=== PATIENT | male | born 1960 | race Hispanic/Latino ===

== ENCOUNTER 2017-06-14 06:27 | Emergency (ER) | payer MEDICAID ==
[2017-06-14 06:36] VITALS: RESP 18; TEMP 97.8; O2SAT 96; BMI 25.1
--- NOTE | 2017-06-14 07:12 | ED PDOC ---
Arrival/HPI - General Chief Complaint: Upper Extremity Problem/Injury Time Seen by Provider: 06/14/17 06:31 Historian: Patient - History of Present Illness Narrative History of Present Illness (Text): 06/14/17 07:05 A 57 year old male presents to the emergency department complaining of right elbow pain after mechanical fall last night. Patient reports he tripped on the sidewalk landing on his right elbow. Patient denies any loss of consciousness, head trauma, headache, neck pain, nausea, vomiting, back pain, chest pain, shortness of breath or any other complaints. PMD: Dr. Mendes Time/Duration: Other (Last night) Symptom Course: Unchanged Context: Walking Past Medical History - Provider Review Nursing Documentation Reviewed: Yes - Infectious Disease Hx of Infectious Diseases: None - Tetanus Immunization Tetanus Immunization: Unknown - Cardiac Hx Hypertension: Yes - Pulmonary Hx Respiratory Disorders: No - Neurological Hx Paralysis: No - HEENT Hx HEENT Disorder: No - Renal Hx Renal Disorder: No - Endocrine/Metabolic Hx Endocrine Disorders: No - Hematological/Oncological Hx Blood Transfusions: No - Integumentary Hx Dermatological Disorder: No Other/Comment: history of lipoma right forehead - Musculoskeletal/Rheumatological Hx Musculoskeletal Disorders: Yes Hx Herniated Disk: Yes - Gastrointestinal Hx Gastrointestinal Disorders: Yes Hx Fatty Liver Disease: Yes Hx Gastroesophageal Reflux: Yes - Genitourinary/Gynecological Hx Genitourinary Disorders: No - Psychiatric Hx Emotional Abuse: No Hx Physical Abuse: No Hx Substance Use: No - Surgical History Other/Comment: tumor right forehead - Anesthesia Hx Anesthesia Reactions: No Hx Malignant Hyperthermia: No - Suicidal Assessment Feels Threatened In Home Enviroment: No Family/Social History - Physician Review Nursing Documentation Reviewed: Yes Family/Social History: No Known Family HX Smoking Status: Heavy Smoker > 10 Cigarettes Daily Hx Alcohol Use: Yes Frequency of alcohol use: Socially Hx Substance Use: No Hx Substance Use Treatment: No Allergies/Home Meds Allergies/Adverse Reactions: Allergies No Known Allergies Allergy (Verified 06/20/16 17:24) Physical Exam - Physical Exam Narrative Physical Exam (Text): - Review of Systems Constitutional: Normal. absent: Fatigue, Weight Change, Fevers Eyes: Normal ENT: Normal Respiratory: Normal absent: SOB, Cough, Sputum Cardiovascular: Normal absent: Chest pain, Palpitations, Syncope Gastrointestinal: Normal absent: Abdominal pain, Diarrhea, Nausea, Vomiting Genitourinary: Normal. absent: Dysuria, Frequency, Hematuria Musculoskeletal: (+) Right elbow pain. absent: Arthralgias, Back Pain, Neck Pain Skin: Normal Neurological: Normal absent: Focal Weakness Endocrine: Normal Hemo/Lymphatic: Normal Psychiatric: Normal - Physical exam Patient appears age appropriate, speaking full sentences without difficulty - Systems Exam Head: Present: Atraumatic, Normocephalic Pupils: Present: PERRL Extraocular Muscles: Present: EOMI Conjunctiva: Present: Normal Mouth: Present: Moist Mucous Membranes Neck: Present: Normal Range of Motion. No: MIDLINE TENDERNESS, Paraspinal Tenderness Respiratory/Chest: Present: Clear to Auscultation, Good Air Exchange. No: Respiratory Distress, Accessory Muscle Use, Tachypnic Cardiovascular: Present: Regular Rate and Rhythm, Normal S1, S2, Peripheral Pulses Present. No: Murmurs Abdomen: Present: Normal Bowel Sounds, No: Tenderness, Peritoneal Signs, Rebound, Guarding, Distention Back: Present: Normal Inspection. No: Midline Tenderness, Paraspinal Tenderness Upper Extremity: Present: Full active and passive ROM of right wrist, Limited ROM of right elbow secondary to pain, Shoulder, clavicle, and humerus unremarkable. No: Tenderness in wrist, Snuff box tenderness, Pain with axial thumb loading, Obvious swelling, Cyanosis, Edema Lower Extremity: Present: Normal Inspection. No: Edema Neurological: Present: GCS=15, Speech Normal, cranial nerves II through XII fully intact with no cerebellar abnormality, neuro-sensory fully intact. No focal neurological deficits. Skin: Present: Warm, Dry, Normal Color. No: Rashes Lymphatic: Present: OX3, NI, NC Psychiatric: Present: Alert, Oriented x 3, Normal Insight, Normal Concentration Vital Signs Reviewed: Yes Vital Signs Temp Pulse Resp BP Pulse Ox 06/14/17 09:00 80 18 138/89 06/14/17 06:31 97.8 F 96 H 18 174/62 H 96 Temperature: Afebrile Blood Pressure: Hypertensive Pulse: Tachycardic Respiratory Rate: Normal Appearance: Positive for: Well-Appearing, Non-Toxic, Comfortable Pain Distress: None Mental Status: Positive for: Alert and Oriented X 3 Medical Decision Making ED Course and Treatment: 06/14/17 07:05 Impression: A 57 year old male with right elbow pain after mechanical fall. On exam, limited ROM of right elbow secondary to pain, wrist, shoulder, clavicle, and humerus unremarkable. Differential Diagnosis included but are not limited to: Sprain vs. Strain vs. Fracture Plan: -- Right elbow xray -- Right forearm xray -- Toradol -- Reassess and disposition Progress Notes: 06/14/17 07:58: Right elbow X-ray read and interpreted by me, which shows distal humeral fracture. 06/14/17 08:20: Dr. Yanes paged, awaiting call back. Posterior long arm splint applied. Distal neurovascular fully intact. Patient states he will follow up his orthopedic surgeon, which he sees in [place]. Patient states that he does not want a sling and removed it while in the emergency department. Patient was warned of the benefits of using a sling and the risks of improper immobilization. 06/14/17 08:32: Discussed case with Dr. Yanes, agrees with follow up outpatient. Requests CT prior to discharge. Report Date : 06/14/2017 09:17:23 Procedure: Right upper extremity CT Dictator : Chano Chávez MD IMPRESSION: Severe degenerative changes with large joint effusion. Linear lucency along the medial margin of the coronoid process favored to represent a degenerative change though nondisplaced fractures not definitively excluded. Pt states he understands to return to the ER right away for new or worsening symptoms or for inability to f/u with PMD or specialist as instructed. Patient states that he fully agrees with and understands discharge instructions. States that he agrees with the plan and disposition. Verbalized and repeated discharge instructions and plan. I have given the patient opportunity to ask any additional questions. - RAD Interpretation Radiology Orders: 06/14/17 07:12 ELBOW RIGHT 3 VIEWS ROUTINE [RAD] Stat FOREARM RT FALL PROTOCOL [RAD] Stat 06/14/17 08:32 EXT UPPER W/O CONTRAST RIGHT [CT] Stat - Medication Orders Current Medication Orders: Discontinued Medications Ketorolac Tromethamine (Toradol) 30 mg IM STAT STA Stop: 06/14/17 07:13 Last Admin: 06/14/17 07:54 Dose: 30 mg Re-Assess: JARVIS Pain Assessment Document 06/14/17 08:54 NH (Rec: 06/14/17 10:36 [place] [facility] [id number]) Pain Reassessment Is this a pain reassessment? Yes Sleep Is patient sleeping during reassessment? No Presence of Pain Presence of Pain Yes Pain Scale Used Pain Scale Used Numeric Location Left, Right or Bilateral Right Pain Location Body Site Elbow Description Description Throbbing Pain Behavior Guarding Aggravating Factors ADL's Changing Position - Scribe Statement The provider has reviewed the documentation as recorded by the Scribe Lexus Scott training under Fernanda Washburn Provider Scribe Attestation: All medical record entries made by the Scribe were at my direction and personally dictated by me. I have reviewed the chart and agree that the record accurately reflects my personal performance of the history, physical exam, medical decision making, and the department course for this patient. I have also personally directed, reviewed, and agree with the discharge instructions and disposition. Disposition/Present on Arrival - Present on Arrival Any Indicators Present on Arrival: No History of DVT/PE: No History of Uncontrolled Diabetes: No Urinary Catheter: No History of Decub. Ulcer: No History Surgical Site Infection Following: None - Disposition Have Diagnosis and Disposition been Completed?: Yes Diagnosis: Elbow fracture Disposition: HOME/ ROUTINE Disposition Time: 08:17 Patient Plan: Discharge Condition: GOOD Discharge Instructions (ExitCare): Elbow Fracture in Adults (ED) Additional Instructions: PLEASE RETURN TO THE EMERGENCY DEPARTMENT FOR NEW OR WORSENING SYMPTOMS. RETURN RIGHT AWAY IF YOU CANNOT FOLLOW UP WITH YOUR PRIMARY CARE DOCTOR, CLINIC, OR SPECIALIST IN 1-2 DAYS. Prescriptions: oxyCODONE/Acetaminophen [Percocet 5/325 mg Tab] 1 ea PO Q8 #12 tab Referrals: Yecenia Mendes DO [Primary Care Provider] - Follow up with primary Evaristo Nix DO [Staff Provider] - Follow up with primary Taylor Corona MD [Staff Provider] - Follow up with primary Forms: [facility] ([place]), WORK NOTE
--- NOTE | 2017-06-14 09:19 | CT ---
PROCEDURE: HISTORY: fx COMPARISON: 06/14/2017 radiographs TECHNIQUE: Noncontrast FINDINGS: Evaluation demonstrates severe degenerative changes of the elbow joint with multiple fragments, as well as marginal spur formation, with subchondral sclerosis. There is a linear lucency noted along the medial margin of the coronoid process which may be chronic though a fracture is not definitively excluded. There is a large joint effusion. The remaining soft tissues are grossly unremarkable. IMPRESSION: Severe degenerative changes with large joint effusion. Linear lucency along the medial margin of the coronoid process favored to represent a degenerative change though nondisplaced fractures not definitively excluded.
[2017-06-14 10:36] VITALS: BP 138/89; PULSE 80
--- NOTE | 2017-06-14 13:13 | RAD ---
PROCEDURE: Radiographs of the Right Forearm HISTORY: fall COMPARISON: Comparison made with concurrent radiographs of the right elbow TECHNIQUE: Frontal and lateral views obtained. FINDINGS: BONES: The current study reveals multiple small bony densities within the soft tissues adjacent to to the lateral and probably supracondylar region no. Findings may represent heterotopic bone secondary to degenerative osteoarthritis however the possibility of a small nondisplaced fracture cannot be excluded. Consider followup CT scan of the right elbow JOINT SPACES: Degenerative osteoarthritis. OTHER FINDINGS: None. IMPRESSION: DJD. Possibility of a nondisplaced fracture cannot be completely excluded. Followup CT scan may be prudent.
--- NOTE | 2017-06-14 13:14 | RAD ---
PROCEDURE: Radiographs of the right elbow. HISTORY: fall COMPARISON: Comparison made with concurrent radiographs of the right forearm. FINDINGS: BONES: The current study reveals multiple tiny densities within soft tissues adjacent to the lateral and medial epicondyles as well as in the supracondylar region. Findings may represent early ectopic bone secondary DJD however the possibility of a nondisplaced fracture not excluded consider followup CT scan of the elbow. JOINTS: Degenerative osteoarthritis of with heterotopic bone changes. SOFT TISSUES: Normal. JOINT EFFUSION: No significant joint effusion is identified OTHER FINDINGS: None. IMPRESSION: DJD with small heterotopic bony densities likely degenerative in origin as well. Possible nondisplaced fracture not excluded. Consider followup CT scan of the elbow.
== END 2017-06-14 09:00 | disposition home or self-care (01) ==
LOC: ED 06:27
DX: S42.401A Unspecified fracture of lower end of right humerus, initial encounter for closed fracture (principal); W01.0XXA Fall on same level from slipping, tripping and stumbling without subsequent striking against object, initial encounter; Y93.9 Activity, unspecified; Y92.480 Sidewalk as the place of occurrence of the external cause
CPT/HCPCS: 73080; 73090; 73200; 96372; 99283; J1885

== ENCOUNTER 2017-08-19 22:35 | Inpatient (IN) | payer MEDICAID ==
[2017-08-19 22:35] VITALS: BMI 25.1
[2017-08-19] MEDS ORDERED: Pantoprazole 40 MG in Sodium Chloride 0.9% 100 ML IV STA (22:49)
[2017-08-19] MEDS ORDERED: Sodium Chloride 0.9% 1,000 ML IV STA (22:49)
--- NOTE | 2017-08-19 23:15 | ED PDOC ---
Arrival/HPI - General Chief Complaint: Chest Pain Time Seen by Provider: 08/19/17 22:37 - History of Present Illness Narrative History of Present Illness (Text): 08/19/17 23:05 A 57 year old male, whose past medical history includes hypertension, presents to the emergency department complaining of chest pain for 1 week. Patient notes also experiencing abdominal pain, but denies of any chills, nausea, vomiting, or any other complaints. Also, patient states he drinks on a daily basis. PMD: Dr. Yecenia Mendes Time/Duration: 1 week Symptom Onset: Sudden Symptom Course: Unchanged Past Medical History - Provider Review Nursing Documentation Reviewed: Yes - Infectious Disease Hx of Infectious Diseases: None - Tetanus Immunization Tetanus Immunization: Unknown - Cardiac Hx Hypertension: Yes - Pulmonary Hx Respiratory Disorders: No - Neurological Hx Paralysis: No - HEENT Hx HEENT Disorder: No - Renal Hx Renal Disorder: No - Endocrine/Metabolic Hx Endocrine Disorders: No - Hematological/Oncological Hx Blood Transfusions: No - Integumentary Hx Dermatological Disorder: No Other/Comment: history of lipoma right forehead - Musculoskeletal/Rheumatological Hx Musculoskeletal Disorders: Yes Hx Herniated Disk: Yes - Gastrointestinal Hx Gastrointestinal Disorders: Yes Hx Fatty Liver Disease: Yes Hx Gastroesophageal Reflux: Yes - Genitourinary/Gynecological Hx Genitourinary Disorders: No - Psychiatric Hx Emotional Abuse: No Hx Physical Abuse: No Hx Substance Use: No - Surgical History Other/Comment: tumor right forehead - Anesthesia Hx Anesthesia Reactions: No Hx Malignant Hyperthermia: No - Suicidal Assessment Feels Threatened In Home Enviroment: No Family/Social History - Physician Review Nursing Documentation Reviewed: Yes Family/Social History: No Known Family HX Smoking Status: Heavy Smoker > 10 Cigarettes Daily Hx Alcohol Use: Yes Hx Substance Use: No Hx Substance Use Treatment: No Allergies/Home Meds Allergies/Adverse Reactions: Allergies No Known Allergies Allergy (Verified 06/20/16 17:24) Home Medications: Home Meds Medication Instructions Recorded Confirmed Naproxen Sodium [Aleve] 220 mg PO DAILY 08/20/17 08/20/17 Review of Systems - Physician Review All systems were reviewed & negative as marked: Yes - Review of Systems Constitutional: absent: Night Sweats Cardiovascular: Chest Pain Gastrointestinal: Abdominal Pain. absent: Nausea, Vomiting Physical Exam Vital Signs Temp Pulse Resp BP Pulse Ox 08/20/17 01:55 98.4 F 63 20 138/90 97 08/20/17 00:36 83 16 132/79 96 08/19/17 22:36 99.3 F 70 19 139/84 95 - Systems Exam Head: Present: Atraumatic, Normocephalic Pupils: Present: PERRL Extroacular Muscles: Present: EOMI Conjunctiva: Present: Normal Mouth: Present: Moist Mucous Membranes Neck: Present: Normal Range of Motion Respiratory/Chest: Present: Clear to Auscultation, Good Air Exchange. No: Respiratory Distress, Accessory Muscle Use Cardiovascular: Present: Regular Rate and Rhythm, Normal S1, S2. No: Murmurs Abdomen: Present: Tenderness (slight tenderness to LUQ abdomen) Back: Present: Normal Inspection Upper Extremity: Present: Normal Inspection. No: Cyanosis, Edema Lower Extremity: Present: Normal Inspection. No: Edema Neurological: Present: GCS=15, CN II-XII Intact, Speech Normal Skin: Present: Warm, Dry, Normal Color. No: Rashes Psychiatric: Present: Alert, Oriented x 3, Normal Insight, Normal Concentration Medical Decision Making ED Course and Treatment: 08/19/17 23:13 Impression: 57 year old male with chest pain and abdominal pain. Physical exam shows slight tenderness to LUQ abdomen, possible pancreatitis due to daily alcohol drinking. Plan: -- EKG -- labs -- Urinalysis -- Protonix -- Zofran -- IV Fluids -- Reassess and disposition Prior Visits: Notes and results from previous visits were reviewed. Patient was last in the emergency department on 06/14/2017 for right elbow pain. Patient was discharged home. Progress Notes: case d/w dr duron and medical charge entry specialist 08/22/17 08:16 - Lab Interpretations Lab Results: 08/19/17 22:50 08/19/17 22:50 Lab Results 08/19/17 22:50: Alcohol, Quantitative < 10 08/19/17 22:50: Sodium 134, Potassium 3.3 L, Chloride 99, Carbon Dioxide 24, Anion Gap 14, BUN 11, Creatinine 0.7, Est GFR ( Amer) > 60, Est GFR (Non- Af Amer) > 60, Random Glucose 111 H, Calcium 9.0, Total Bilirubin 1.6 H, AST 135 H, ALT 110 H, Alkaline Phosphatase 150 H, Lactate Dehydrogenase 639, Total Creatine Kinase 288 H, CK-MB (CK-2) 4.1 H, CK-MB (CK-2) % Cancelled, Troponin I < 0.01, Total Protein 6.7, Albumin 3.7, Globulin 3.0, Albumin/Globulin Ratio 1.2 , Amylase 58, Lipase 43 08/19/17 22:50: PT 10.7, INR 0.99, APTT 32.2 H 08/19/17 22:50: WBC 7.4, RBC 3.74, Hgb 13.1 L, Hct 36.3 L, MCV 97.1, MCH 35.0, MCHC 36.1, RDW 11.9, Plt Count 180, MPV 9.5, Gran % 73.6 H, Lymph % (Auto) 12.5 L, [place] % (Auto) 13.7 H, Eos % (Auto) 0.1 L, Baso % (Auto) 0.1, Gran # 5.46, Lymph # 0.9 L, [place] # 1.0 H, Eos # 0.0, Baso # 0.01 I have reviewed the lab results: Yes - Medication Orders Current Medication Orders: Aspirin (Aspirin Chewable) 324 mg PO DAILY [facility] Last Admin: 08/21/17 09:07 Dose: 324 mg Chlordiazepoxide (Librium) 10 mg PO BID MIGUEL PRN Reason: Protocol Last Admin: 08/21/17 17:43 Dose: 10 mg Behavioural Document 08/21/17 17:43 (Rec: 08/21/17 17:43 [id number]) Maintenance Maintenance Dose Yes Nonmedicinal Nonmedicinal Interventions Redirect Therapeutic Communication Behavior Behavior for Medication: Anxiety Folic Acid (Folic Acid) 1 mg PO DAILY [facility] Last Admin: 08/21/17 09:07 Dose: 1 mg Levofloxacin/Dextrose (Levaquin 500mg) 500 mg in 100 mls @ 100 mls/hr IVPB DAILY [facility] Last Admin: 08/21/17 09:12 Dose: 100 mls/hr eMAR Start Stop Document 08/21/17 09:12 KMS (Rec: 08/21/17 09:13 KMS [id number]) Intravenous Solution Start Date 08/21/17 Start Time 09:13 End Date 08/21/17 End time 10:13 Total Infusion Time 60 Lorazepam (Ativan) 1 mg IVP Q6H PRN; Protocol PRN Reason: Agitation Lorazepam (Ativan) 2 mg PO Q6H MIGUEL PRN Reason: Protocol Last Admin: 08/22/17 06:27 Dose: 2 mg Behavioural Document 08/22/17 06:27 PCO (Rec: 08/22/17 06:27 PCO [id number]) Maintenance Maintenance Dose Yes Nonmedicinal Nonmedicinal Interventions Redirect Behavior Behavior for Medication: Anxiety Multivitamins/Minerals (Therapeutic-M Tab) 1 tab PO 0800 MIGUEL Last Admin: 08/22/17 08:12 Dose: 1 tab Pantoprazole Sodium (Protonix Ec Tab) 40 mg PO 0600 MIGUEL Last Admin: 08/22/17 06:27 Dose: 40 mg Thiamine HCl (Vitamin B1 Tab) 100 mg PO DAILY [facility] Last Admin: 08/21/17 09:06 Dose: 100 mg Discontinued Medications Aspirin (Ecotrin) 81 mg PO STAT STA Stop: 08/20/17 01:38 Last Admin: 08/20/17 02:37 Dose: 81 mg Chlordiazepoxide (Librium) 25 mg PO STAT STA PRN Reason: Protocol Stop: 08/19/17 23:17 Last Admin: 08/19/17 23:54 Dose: 25 mg Chlordiazepoxide (Librium) 25 mg PO BID MIGUEL PRN Reason: Protocol Last Admin: 08/20/17 17:09 Dose: 25 mg Re-Assess: Reassess Psych Meds Document 08/20/17 18:09 DEL (Rec: 08/20/17 19:16 DEL [id number]) Reassess Psych Med Effective Sodium Chloride (Sodium Chloride 0.9%) 1,000 mls @ 100 mls/hr IV .Q10H STA Stop: 08/20/17 08:48 Last Admin: 08/19/17 23:10 Dose: 100 mls/hr eMAR Start Stop Document 08/19/17 23:10 JOL (Rec: 08/19/17 23:11 JOL [id number]) Intravenous Solution Start Date 08/19/17 Start Time 23:11 Multivitamins/Vitamin C 10 ml/Thiamine HCl 100 mg/ Folic Acid 1 mg/ Sodium Chloride 1,011.2 mls @ 100 mls/hr IV .Q10H7M ONE Stop: 08/20/17 11:54 Last Admin: 08/20/17 03:09 Dose: 100 mls/hr eMAR Start Stop Document 08/20/17 03:09 CO (Rec: 08/20/17 03:09 CO [id number]) Intravenous Solution Start Date 08/20/17 Start Time 03:09 Potassium Chloride (Potassium Chloride 20 Meq/100 Ml) 20 meq in 100 mls @ 50 mls/hr IVPB Q2H MIGUEL Stop: 08/20/17 08:44 Last Admin: 08/20/17 12:22 Dose: Magnesium Sulfate 2 gm/ Sodium (Chloride) 104 mls @ 102 mls/hr IVPB ONCE ONE Stop: 08/20/17 08:44 Last Admin: 08/20/17 09:16 Dose: 102 mls/hr eMAR Start Stop Document 08/20/17 09:16 DEL (Rec: 08/20/17 09:16 DEL [id number]) Intravenous Solution Start Date 08/20/17 Start Time 09:16 End Date 08/20/17 End time 10:15 Total Infusion Time 59 Potassium Phosphate 15 mmole/ (Sodium Chloride) 255 mls @ 42.5 mls/hr IVPB ONCE ONE Stop: 08/20/17 13:51 Last Admin: 08/20/17 11:05 Dose: 42.5 mls/hr eMAR Start Stop Document 08/20/17 11:05 DEL (Rec: 08/20/17 11:05 DEL [id number]) Intravenous Solution Start Date 08/20/17 Start Time 11:05 End Date 08/20/17 End time 17:00 Total Infusion Time 355 Ibuprofen (Motrin Tab) 600 mg PO ONCE ONE Stop: 08/21/17 12:36 Last Admin: 08/21/17 13:12 Dose: 600 mg [facility] Pain/Vitals Document 08/21/17 13:12 KMS (Rec: 08/21/17 13:12 KMS [id number]) Pain Reassessment Is This A Pain ReAssessment? 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 Yes Lorazepam (Ativan) 2 mg IVP Q6H [facility] PRN Reason: Protocol Last Admin: 08/21/17 09:06 Dose: 2 mg IVP Administration Document 08/21/17 09:06 KMS (Rec: 08/21/17 09:06 KMS [id number]) Charges for Administration # of IVP Administrations 1 Behavioural Document 08/21/17 09:06 KMS (Rec: 08/21/17 09:06 KMS [id number] [id number]) Maintenance Maintenance Dose Yes Nonmedicinal Nonmedicinal Interventions Redirect Behavior Behavior for Medication: Anxiety Re-Assess: Reassess Psych Meds Document 08/21/17 09:36 KMS (Rec: 08/21/17 11:19 KMS [id number]) Reassess Psych Med Effective Naproxen (Anaprox) 275 mg PO DAILY [facility] Last Admin: 08/20/17 09:15 Dose: 275 mg [facility] Pain Assessment Document 08/20/17 09:15 DEL (Rec: 08/20/17 09:15 DEL [id number]) Pain Reassessment Is this a pain reassessment? No Sleep Is patient sleeping during reassessment? No Presence of Pain Presence of Pain Yes Location Pain Location Body Site Abdomen Re-Assess: [facility] Pain Assessment Document 08/20/17 10:15 DEL (Rec: 08/20/17 10:29 DEL [id number] [id number]) Pain Reassessment Is this a pain reassessment? Yes Sleep Is patient sleeping during reassessment? No Presence of Pain Presence of Pain No Ondansetron HCl (Zofran Inj) 4 mg IVP STAT STA Stop: 08/19/17 22:50 Last Admin: 08/19/17 23:11 Dose: 4 mg IVP Administration Document 08/19/17 23:11 JOL (Rec: 08/19/17 23:11 JOL [id number]) Charges for Administration # of IVP Administrations 1 Pantoprazole Sodium (Protonix Inj) 40 mg IVP STAT STA Stop: 08/19/17 22:54 Last Admin: 08/19/17 23:11 Dose: 40 mg IVP Administration Document 08/19/17 23:11 JOL (Rec: 08/19/17 23:12 JOL [id number]) Charges for Administration # of IVP Administrations 1 Potassium Chloride (K-Dur 20 Meq Er Tab) 40 meq PO STAT STA Stop: 08/20/17 07:45 Last Admin: 08/20/17 09:13 Dose: 40 meq - Scribe Statement The provider has reviewed the documentation as recorded by the Nidhi Sanches Provider Scribe Attestation: All medical record entries made by the Preetiibminerva were at my direction and personally dictated by me. I have reviewed the chart and agree that the record accurately reflects my personal performance of the history, physical exam, medical decision making, and the department course for this patient. I have also personally directed, reviewed, and agree with the discharge instructions and disposition. Disposition/Present on Arrival - Present on Arrival Any Indicators Present on Arrival: No History of DVT/PE: No History of Uncontrolled Diabetes: No Urinary Catheter: No History of Decub. Ulcer: No History Surgical Site Infection Following: None - Disposition Have Diagnosis and Disposition been Completed?: Yes Diagnosis: Alcohol withdrawal Disposition: HOSPITALIZED Disposition Time: 00:25 Condition: GOOD
[2017-08-19 23:29] LABS: ALB/GLOB RATIO 1.2 (1.1-1.8); ALKALINE PHOSPHATASE 150 U/L (38-126); ALT/SGPT 110 U/L (7-56); AMYLASE 58 U/L (35-125); AST/SGOT 135 U/L (17-59); BILIRUBIN,TOTAL 1.6 mg/dL (0.2-1.3); BLOOD UREA NITROGEN 11 mg/dL (7-21); CARBON DIOXIDE 24 mmol/L (21-33); CHLORIDE 99 mmol/L (98-107); GFR AFRICAN-AMERICAN > 60; GLUCOSE,RANDOM 111 mg/dL (70-110); LIPASE 43 U/L (23-300); POTASSIUM 3.3 mmol/L (3.6-5.0); SODIUM 134 mmol/L (132-148); TOTAL PROTEIN 6.7 g/dL (5.8-8.3)
[2017-08-19 23:35] LABS: INR 0.99 (0.93-1.08); PARTIAL THROMBOPLASTIN TIME 32.2 Seconds (23.7-30.8)
[2017-08-19 23:36] LABS: BASO # 0.01 K/mm3 (0.0-2.0); BASO % 0.1 % (0.0-3.0); EOS % 0.1 % (1.5-5.0); GRAN # 5.46 (1.4-6.5); GRAN % 73.6 % (50.0-68.0); HEMATOCRIT 36.3 % (42.0-52.0); LYMPH # 0.9 (1.2-3.4); LYMPH % 12.5 % (22.0-35.0); MEAN CELL VOLUME 97.1 fl (80.0-105.0); MEAN CORPUSCULAR HGB CONC 36.1 g/dl (31.0-37.0); MEAN PLATELET VOLUME 9.5 fl (7.0-11.0); MONO % 13.7 % (1.0-6.0); RED CELL DISTRIBUTION WIDTH 11.9 % (11.5-14.5); WHITE BLOOD COUNT 7.4 10^3/ul (4.5-11.0)
[2017-08-19 23:42] LABS: TROPONIN I < 0.01 ng/mL
[2017-08-20] MEDS ORDERED: Multivitamin (MVI) 10 ML, Thiamine 100 MG, Folic Acid 1 MG in Sodium Chloride 0.9% 1,00... IV ONE (01:48)
[2017-08-20 02:00] LABS: URINE BILIRUBIN SMALL (NEGATIVE); URINE BLOOD NEGATIVE (NEGATIVE); URINE GLUCOSE (UA) NEGATIVE (NEGATIVE); URINE KETONE 15 mg/dL (NEGATIVE); URINE LEUKOCYTE ESTERASE NEGATIVE Leu/uL (NEGATIVE); URINE PROTEIN TRACE mg/dL (<30 mg/dL)
[2017-08-20 02:05] LABS: URINE APPEARANCE SL CLOUDY (CLEAR); URINE COLOR YELLOW (YELLOW)
[2017-08-20 02:35] LABS: URINE EPITHELIAL CELLS 0 - 2 /hpf (0-5); URINE RBC 0 - 2 /hpf (0-2); URINE WBC 0 - 2 /hpf (0-6)
--- NOTE | 2017-08-20 04:21 | CP.PCM.HP ---
History of Present Illness - History of Present Illness History of Present Illness: H/P For IM - TKS DO, PGY-1 CC: CP HPI: 57 M with PMHx pertinent for HTN presents with a two week duration of sharp, non -radiating chest pain of 5/10 severity with associated symptoms of sob that did not get better with any intervention. 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 He also states that he has had a cough for the same period of time, and that he has coughed up yellow sputum. He states that he came to the ER today because the CP made him feel "like (he) was dying." Patient admits to drinking alcohol everyday. Pt denies f/ch/n/v/d/dysuria/frequency/urgency/hematuria/hematochezia/ hematemesis PSHx: Pt denies PMHx: HTN All: NKDA SocHx: +tobacco, +daily etoh, +illicits - heroin, marijuana FamHx: Pt denies Meds: Naproxen ROS: Constitutional: pt denies fever, chills, generalized weakness ENT: pt denies dysphagia, otalgia, hearing deficit, rhinorrhea Eyes: pt denies sudden loss of vision, diplopia, blurred vision MSK: pt denies muscle stiffness, joint pain, extremity cramping Cardio: +see hpi; Pulm: +see hpi; GI: +minor abdominal pain; pt denies loss of appetite, abdominal pain, constipation, melena, n/v/d : pt denies burning on urination, urinary frequency, hematuria, urinary urgency Neuro: pt denies paresis, paresthesia, dizziness, broussard, numbness, tingling Derm: pt denies skin changes, lesions, nail changes Endo: pt denies intolerance to heat/cold, diaphoresis, night sweats, polydipsia Psych: pt denies anxiety, depression, mood changes Present on Admission - Present on Admission Any Indicators Present on Admission: No Past Patient History - Infectious Disease Hx of Infectious Diseases: None - Tetanus Immunizations Tetanus Immunization: Unknown - Past Social History Smoking Status: Heavy Smoker > 10 Cigarettes Daily - CARDIAC Hx Hypertension: Yes - PULMONARY Hx Respiratory Disorders: Yes Hx Bronchitis: Yes - NEUROLOGICAL Hx Neurological Disorder: No Hx Dizziness: Yes Hx Migraine: Yes - HEENT Hx HEENT Problems: No Hx Blind: Yes - RENAL Hx Chronic Kidney Disease: Yes Hx Renal Failure: Yes (2015) - ENDOCRINE/METABOLIC Hx Endocrine Disorders: No - HEMATOLOGICAL/ONCOLOGICAL Hx Blood Disorders: No Hx Hepatitis B: Yes (2016) - INTEGUMENTARY Hx Dermatological Problems: No Other/Comment: history of lipoma right forehead - MUSCULOSKELETAL/RHEUMATOLOGICAL Hx Musculoskeletal Disorders: Yes Hx Back Pain: Yes Hx Falls: Yes Hx Fractures: Yes (fingers, arms, elbow) Hx Herniated Disk: Yes - GASTROINTESTINAL Hx Gastrointestinal Disorders: Yes Hx Gastroesophageal Reflux: Yes Hx Liver Failure: Yes - GENITOURINARY/GYNECOLOGICAL Hx Genitourinary Disorders: No - PSYCHIATRIC Hx Psychophysiologic Disorder: Yes Hx Anxiety: Yes Hx Emotional Abuse: No Hx Physical Abuse: No Hx Substance Use: No - SURGICAL HISTORY Hx Surgeries: Yes Other/Comment: tumor right forehead, hernia hydrocele - ANESTHESIA Hx Anesthesia Reactions: No Hx Malignant Hyperthermia: No Meds Allergies/Adverse Reactions: Allergies Allergy/AdvReac Type Severity Reaction Status Date / Time No Known Allergies Allergy Verified 06/20/16 17:24 Physical Exam - Additional Findings Additional findings: Phys Exam: VS as below Constitutional: a&o x 4, nad Head and Neck: neck supple, no jvd, trachea midline, carotid midline, no cervical/head mass Eyes: steve, nonicteric sclera, eom intact ENT: auditory acuity grossly intact, throat not congested, no nasal deformity Cardio: rrr, no m/r/g, no carotid bruit, nml s1, s2 Pulm: no accessory muscle use, equal nml breath sounds bilaterally, ctab Abd: +LUQ tenderness; s/nd, nbs x 4 q, no palpable masses Derm: no rashes, no ulcers, no lesions Extr: no edema, no cyanosis, no calf tenderness, no lesions, no varicosities Neuro: cn II-XII grossly intact, ue and le 5/5 muscle strength bilaterally , no los ue, le bilaterally and core Results - Vital Signs Recent Vital Signs: Last Vital Signs Temp 99.3 F 08/19/17 22:36 Pulse 80 08/20/17 02:00 Resp 20 08/20/17 02:00 BP 132/79 08/20/17 00:36 Pulse Ox 96 08/20/17 00:36 - Labs Result Diagrams: 08/19/17 22:50 08/19/17 22:50 Labs: Laboratory Results - last 24 hr 08/20/17 08/20/17 01:45 01:45 Urine Color Yellow Urine Appearance Sl cloudy Urine pH 7.0 Ur Specific [place] 1.010 Urine Protein Trace H Urine Glucose (UA) Negative Urine Ketones 15 H Urine Blood Negative Urine Nitrate Negative Urine Bilirubin Small H Urine Urobilinogen 2.0 H Ur Leukocyte Esterase Negative Urine RBC 0 - 2 Urine WBC 0 - 2 Ur Epithelial Cells 0 - 2 Urine Opiates Screen Positive H Urine Methadone Screen Negative Ur Barbiturates Screen Negative Ur Phencyclidine Scrn Negative Ur Amphetamines Screen Negative U Benzodiazepines Scrn Negative U Oth Cocaine Metabols Negative U Cannabinoids Screen Positive H Assessment & Plan - Assessment and Plan (Free Text) Assessment: A/P 57 M PMHx of HTN and substance abuse presenting with 2 weeks duration of chest pain. 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 Pradhan Hypokalemia - Replete K+ prn - Assess Mg level Hx/O HTN - No home meds, BP fine here Hx/O Substance Abuse - f/u Tox Screen - Advise on cessation
--- NOTE | 2017-08-20 05:27 | CP.PCM.CON ---
<Asuncion Johnston - Last Filed: 08/20/17 13:01> History of Present Illness - History of Present Illness History of Present Illness: Pgy4 Initial GI Consult Sergio Bray is a 57 M with a hx of HTN presented to the ER with Chest Pain. Onset of CP was two week ago. He is currently hallucinating. He describes it as sharp, non-radiating chest pain of 5/10 severity. Denies any alleviating/ aggravating symptoms. He states that he had RUQ pain, but minimal. He states that is consumes ETOH daily with an average of 10 beers daily. His last drink was 2-3 days ago as per pt. Pt states that he has daily formed brown BM. Pt states that he was hospitalized last year for jaundice and ETOH hepatatis. He state that he was sober for some time afterwards but started to consume alcohol 2 months ago. Denies nausea, vomiting diarrhea. Denies BRBPR, melena, or coffee- ground emesis. In the ER pt was found to have elevated LFts. Pt is currently on CIWA protocol and received 9mg Ativan Iv overnight + standing. PSHx: denies PMHx: HTN SocHx: +tobacco, +daily etoh, +illicits - heroin, marijuana FamHx: Denies hx of colon ca Meds: Naproxen ROS: 12 point ROS conducted, neg other than above Past Patient History - Infectious Disease Hx of Infectious Diseases: None - Tetanus Immunizations Tetanus Immunization: Unknown - Past Social History Smoking Status: Heavy Smoker > 10 Cigarettes Daily - CARDIAC Hx Hypertension: Yes - PULMONARY Hx Respiratory Disorders: Yes Hx Bronchitis: Yes - NEUROLOGICAL Hx Neurological Disorder: No Hx Dizziness: Yes Hx Migraine: Yes - HEENT Hx HEENT Problems: No Hx Blind: Yes - RENAL Hx Chronic Kidney Disease: Yes Hx Renal Failure: Yes (2016) - ENDOCRINE/METABOLIC Hx Endocrine Disorders: No - HEMATOLOGICAL/ONCOLOGICAL Hx Blood Disorders: No Hx Hepatitis B: Yes (2016) - INTEGUMENTARY Hx Dermatological Problems: No Other/Comment: history of lipoma right forehead - MUSCULOSKELETAL/RHEUMATOLOGICAL Hx Musculoskeletal Disorders: Yes Hx Back Pain: Yes Hx Falls: Yes Hx Fractures: Yes (fingers, arms, elbow) Hx Herniated Disk: Yes - GASTROINTESTINAL Hx Gastrointestinal Disorders: Yes Hx Gastroesophageal Reflux: Yes Hx Liver Failure: Yes - GENITOURINARY/GYNECOLOGICAL Hx Genitourinary Disorders: No - PSYCHIATRIC Hx Psychophysiologic Disorder: Yes Hx Anxiety: Yes Hx Emotional Abuse: No Hx Physical Abuse: No Hx Substance Use: No - SURGICAL HISTORY Hx Surgeries: Yes Other/Comment: tumor right forehead, hernia hydrocele - ANESTHESIA Hx Anesthesia Reactions: No Hx Malignant Hyperthermia: No Meds Allergies/Adverse Reactions: Allergies Allergy/AdvReac Type Severity Reaction Status Date / Time No Known Allergies Allergy Verified 06/20/16 17:24 - Medications Medications: Current Medications Aspirin (Aspirin Chewable) 324 mg PO DAILY [facility] Chlordiazepoxide (Librium) 25 mg PO BID MIGUEL PRN Reason: Protocol Sodium Chloride (Sodium Chloride 0.9%) 1,000 mls @ 100 mls/hr IV .Q10H STA Stop: 08/20/17 08:48 Last Admin: 08/19/17 23:10 Dose: 100 mls/hr Multivitamins/Vitamin C 10 ml/Thiamine HCl 100 mg/ Folic Acid 1 mg/ Sodium Chloride 1,011.2 mls @ 100 mls/hr IV .Q10H7M ONE Stop: 08/20/17 11:54 Last Admin: 08/20/17 03:09 Dose: 100 mls/hr Potassium Chloride (Potassium Chloride 20 Meq/100 Ml) 20 meq in 100 mls @ 50 mls/hr IVPB Q2H MIGUEL Stop: 08/20/17 08:44 Lorazepam (Ativan) 2 mg IVP Q2 PRN; Protocol PRN Reason: Agitation Lorazepam (Ativan) 2 mg IVP Q6H MIGUEL PRN Reason: Protocol Last Admin: 08/20/17 02:36 Dose: 2 mg Naproxen (Anaprox) 275 mg PO DAILY [facility] Pantoprazole Sodium (Protonix Ec Tab) 40 mg PO 0600 [facility] Physical Exam - Constitutional Appears: Well, No Acute Distress - Head Exam Head Exam: ATRAUMATIC, NORMOCEPHALIC - Eye Exam Eye Exam: Normal appearance - ENT Exam ENT Exam: Mucous Membranes Moist - Respiratory Exam Respiratory Exam: Clear to Auscultation Bilateral, NORMAL BREATHING PATTERN. absent: Prolonged Expiratory Phase, Rales, Rhonchi, Wheezes, Respiratory Distress - Cardiovascular Exam Cardiovascular Exam: REGULAR RHYTHM, +S1, +S2 - GI/Abdominal Exam GI & Abdominal Exam: Normal Bowel Sounds, Soft. absent: Firm, Guarding, Organomegaly, Rebound - Extremities Exam Extremities exam: Negative for: joint swelling, pedal edema - Neurological Exam Neurological exam: Alert, Oriented x3 - Psychiatric Exam Psychiatric exam: Normal Affect, Normal Mood - Skin Skin Exam: Dry, Intact, Normal Color, Warm Results - Vital Signs Recent Vital Signs: Last Vital Signs Temp 99.3 F 08/19/17 22:36 Pulse 80 08/20/17 02:00 Resp 20 08/20/17 02:00 BP 132/79 08/20/17 00:36 Pulse Ox 96 08/20/17 00:36 - Labs Result Diagrams: 08/20/17 06:00 08/20/17 06:00 Labs: Laboratory Results - last 24 hr 08/20/17 08/20/17 01:45 01:45 Urine Color Yellow Urine Appearance Sl cloudy Urine pH 7.0 Ur Specific [place] 1.010 Urine Protein Trace H Urine Glucose (UA) Negative Urine Ketones 15 H Urine Blood Negative Urine Nitrate Negative Urine Bilirubin Small H Urine Urobilinogen 2.0 H Ur Leukocyte Esterase Negative Urine RBC 0 - 2 Urine WBC 0 - 2 Ur Epithelial Cells 0 - 2 Urine Opiates Screen Positive H Urine Methadone Screen Negative Ur Barbiturates Screen Negative Ur Phencyclidine Scrn Negative Ur Amphetamines Screen Negative U Benzodiazepines Scrn Negative U Oth Cocaine Metabols Negative U Cannabinoids Screen Positive H Assessment & Plan - Assessment and Plan (Free Text) Assessment: Sergio Bray is a 57M w/ hx of HTN and ETOH abuse who presented with CP. Pt is currently on the floor and being tx for alcohol withdrawl. He was found to have have elevated LFTs, likely due to alcoholic hepatitis, r/o infectious etiology 1. Alcoholic Hepatitis, dF < 32 2. Alcohol withdraw 3. Fatty liver 4. Cholelithiasis 5. Dilated CBD, with no U/S evidence of stone 6. ETOH Abuse Plan: -DF < 32, no indication for steroids -continue CIWA -recommend increasing the standing dose of ativan -advance diet as tolerated -watch for refeeding syndrome -if pt requires escalating doses of ativan, may need an ICU Eval -educate on alcohol cessation -anticipate prolonged hospital course -Agree with hepatitis panel -Abd U/S reviewed -No acute GI intervention at this time -will sign off, please reconsult if needed D/W Dr. Ryan <Amaury Ryan - Last Filed: 08/20/17 13:09> Meds - Medications Medications: Current Medications Aspirin (Aspirin Chewable) 324 mg PO DAILY [facility] Last Admin: 08/20/17 09:14 Dose: 324 mg Chlordiazepoxide (Librium) 25 mg PO BID MIGUEL PRN Reason: Protocol Last Admin: 08/20/17 09:15 Dose: 25 mg Potassium Phosphate 15 mmole/ (Sodium Chloride) 255 mls @ 42.5 mls/hr IVPB ONCE ONE Stop: 08/20/17 13:51 Last Admin: 08/20/17 11:05 Dose: 42.5 mls/hr Lorazepam (Ativan) 2 mg IVP Q2 PRN; Protocol PRN Reason: Agitation Lorazepam (Ativan) 2 mg IVP Q6H MIGUEL PRN Reason: Protocol Last Admin: 08/20/17 09:16 Dose: 2 mg Naproxen (Anaprox) 275 mg PO DAILY [facility] Last Admin: 08/20/17 09:15 Dose: 275 mg Pantoprazole Sodium (Protonix Ec Tab) 40 mg PO 0600 [facility] Last Admin: 08/20/17 05:36 Dose: 40 mg Results - Vital Signs Recent Vital Signs: Last Vital Signs Temp 98.6 F 08/20/17 12:00 Pulse 66 08/20/17 12:00 Resp 18 08/20/17 12:00 BP 133/84 08/20/17 12:00 Pulse Ox 97 08/20/17 05:19 - Labs Result Diagrams: 08/20/17 06:00 08/20/17 06:00 Labs: Laboratory Results - last 24 hr 08/20/17 08/20/17 08/20/17 01:45 01:45 06:00 WBC 6.1 RBC 3.71 Hgb 12.7 L Hct 36.2 L MCV 97.6 MCH 34.2 MCHC 35.1 RDW 12.0 Plt Count 178 MPV 9.6 Sodium Potassium Chloride Carbon Dioxide Anion Gap BUN Creatinine Est GFR ( Amer) Est GFR (Non-Af Amer) Random Glucose Hemoglobin A1c Calcium Phosphorus Magnesium Total Bilirubin AST ALT Alkaline Phosphatase Troponin I Total Protein Albumin Globulin Albumin/Globulin Ratio Triglycerides Cholesterol LDL Cholesterol Direct HDL Cholesterol TSH 3rd Generation Urine Color Yellow Urine Appearance Sl cloudy Urine pH 7.0 Ur Specific [place] 1.010 Urine Protein Trace H Urine Glucose (UA) Negative Urine Ketones 15 H Urine Blood Negative Urine Nitrate Negative Urine Bilirubin Small H Urine Urobilinogen 2.0 H Ur Leukocyte Esterase Negative Urine RBC 0 - 2 Urine WBC 0 - 2 Ur Epithelial Cells 0 - 2 Urine Opiates Screen Positive H Urine Methadone Screen Negative Ur Barbiturates Screen Negative Ur Phencyclidine Scrn Negative Ur Amphetamines Screen Negative U Benzodiazepines Scrn Negative U Oth Cocaine Metabols Negative U Cannabinoids Screen Positive H 08/20/17 08/20/17 08/20/17 06:00 06:00 06:00 WBC RBC Hgb Hct MCV MCH MCHC RDW Plt Count MPV Sodium 136 Potassium 3.4 L Chloride 104 Carbon Dioxide 27 Anion Gap 8 L BUN 10 Creatinine 0.7 Est GFR ( Amer) > 60 Est GFR (Non-Af Amer) > 60 Random Glucose 105 Hemoglobin A1c 5.4 Calcium 8.3 L Phosphorus 2.1 L Magnesium 1.6 L Total Bilirubin 1.8 H AST 103 H D ALT 92 H Alkaline Phosphatase 130 H Troponin I < 0.01 Total Protein 5.7 L Albumin 3.1 Globulin 2.6 Albumin/Globulin Ratio 1.2 Triglycerides 59 Cholesterol 107 L LDL Cholesterol Direct 44 HDL Cholesterol 51 TSH 3rd Generation 1.29 Urine Color Urine Appearance Urine pH Ur Specific [place] Urine Protein Urine Glucose (UA) Urine Ketones Urine Blood Urine Nitrate Urine Bilirubin Urine Urobilinogen Ur Leukocyte Esterase Urine RBC Urine WBC Ur Epithelial Cells Urine Opiates Screen Urine Methadone Screen Ur Barbiturates Screen Ur Phencyclidine Scrn Ur Amphetamines Screen U Benzodiazepines Scrn U Oth Cocaine Metabols U Cannabinoids Screen 08/20/17 10:50 WBC RBC Hgb Hct MCV MCH MCHC RDW Plt Count MPV Sodium Potassium Chloride Carbon Dioxide Anion Gap BUN Creatinine Est GFR ( Amer) Est GFR (Non-Af Amer) Random Glucose Hemoglobin A1c Calcium Phosphorus Magnesium Total Bilirubin AST ALT Alkaline Phosphatase Troponin I < 0.01 Total Protein Albumin Globulin Albumin/Globulin Ratio Triglycerides Cholesterol LDL Cholesterol Direct HDL Cholesterol TSH 3rd Generation Urine Color Urine Appearance Urine pH Ur Specific [place] Urine Protein Urine Glucose (UA) Urine Ketones Urine Blood Urine Nitrate Urine Bilirubin Urine Urobilinogen Ur Leukocyte Esterase Urine RBC Urine WBC Ur Epithelial Cells Urine Opiates Screen Urine Methadone Screen Ur Barbiturates Screen Ur Phencyclidine Scrn Ur Amphetamines Screen U Benzodiazepines Scrn U Oth Cocaine Metabols U Cannabinoids Screen Attending/Attestation - Attestation I have personally seen and examined this patient.: Yes I have fully participated in the care of the patient.: Yes I have reviewed all pertinent clinical information: Yes Notes (Text): 08/20/17 13:07 57 year old male with h/o Etoh abuse, HTN admitted with withdrawal from alcohol. 1. Alcoholic Hepatitis 2. Cholelithiasis Plan: -management of withdrawal per primary -supportive measures -diet as tolerated -banana bag -no indication for steroids for etoh hepatitis -advised etoh cessation -advise social work consult -will sign off
[2017-08-20] MEDS: Pantoprazole 40 mg EC Tab PO SCH (05:36)
[2017-08-20 06:25] LABS: HEMATOCRIT 36.2 % (42.0-52.0); MEAN CELL VOLUME 97.6 fl (80.0-105.0); MEAN CORPUSCULAR HEMOGLOBIN 34.2 pg (25.0-35.0); MEAN CORPUSCULAR HGB CONC 35.1 g/dl (31.0-37.0); MEAN PLATELET VOLUME 9.6 fl (7.0-11.0); WHITE BLOOD COUNT 6.1 10^3/ul (4.5-11.0)
[2017-08-20 07:29] LABS: ALB/GLOB RATIO 1.2 (1.1-1.8); ALKALINE PHOSPHATASE 130 U/L (38-126); ALT/SGPT 92 U/L (7-56); AST/SGOT 103 U/L (17-59); BILIRUBIN,TOTAL 1.8 mg/dL (0.2-1.3); BLOOD UREA NITROGEN 10 mg/dL (7-21); CALCIUM 8.3 mg/dL (8.4-10.5); CARBON DIOXIDE 27 mmol/L (21-33); CHLORIDE 104 mmol/L (98-107); CHOLESTEROL 107 mg/dL (130-200); GFR AFRICAN-AMERICAN > 60; GLUCOSE,RANDOM 105 mg/dL (70-110); MAGNESIUM 1.6 mg/dL (1.7-2.2); PHOSPHOROUS 2.1 mg/dL (2.5-4.5); POTASSIUM 3.4 mmol/L (3.6-5.0); SODIUM 136 mmol/L (132-148); TOTAL PROTEIN 5.7 g/dL (5.8-8.3)
[2017-08-20 07:30] LABS: TROPONIN I < 0.01 ng/mL
[2017-08-20] MEDS ORDERED: Magnesium Sulfate 2 GM in Sodium Chloride 0.9% 100 ML IVPB ONE (07:43)
[2017-08-20] MEDS ORDERED: Potassium Chloride 20 mEq ER Tab PO STA (07:44)
[2017-08-20] MEDS ORDERED: Potassium Phosphate 15 MMOLE in Sodium Chloride 0.9% 250 ML IVPB ONE (07:52)
--- NOTE | 2017-08-20 08:32 | RAD ---
HISTORY: cough with sputum COMPARISON: 10/30/2016 TECHNIQUE: Chest PA and lateral FINDINGS: LUNGS: The lungs are well inflated. There is airspace disease in the left lower lobe. PLEURA: No significant pleural effusion identified. No pneumothorax apparent. CARDIOVASCULAR: Normal. OSSEOUS STRUCTURES: No significant abnormalities. VISUALIZED UPPER ABDOMEN: Normal. OTHER FINDINGS: None. IMPRESSION: Left lower lobe pneumonia. Follow-up after medical management is recommended to ensure complete resolution
--- NOTE | 2017-08-20 08:36 | US ---
HISTORY: transaminitis COMPARISON: None. TECHNIQUE: Grayscale imaging was performed. FINDINGS: LIVER: Measures 20.3 cm. There is diffuse increased echogenicity of the liver parenchyma. No mass. No intrahepatic bile duct dilatation. GALLBLADDER: There are small gallstones. No wall thickening or pericholecystic fluid. The sonographic Clark's sign is negative. COMMON BILE DUCT: Measures 7.9 mm. No stones. There is mild diffuse dilatation of the common bile duct. PANCREAS: Unremarkable as visualized. No mass. No ductal dilatation. RIGHT KIDNEY: Measures 12.0cm. Normal echogenicity. No calculus, mass, or hydronephrosis. LEFT KIDNEY: Measures 11.8cm. Normal echogenicity. No calculus, mass, or hydronephrosis. SPLEEN: Normal in size and contour. No mass. AORTA: No aneurysmal dilatation. IVC: Unremarkable. OTHER FINDINGS: None. IMPRESSION: 1. Mild hepatomegaly. Diffuse increased echogenicity in the liver may reflect hepatic steatosis however parenchymal infectious/ inflammatory etiologies cannot be entirely excluded. Clinical and laboratory correlation is advised. 2. Cholelithiasis. Mild diffuse dilatation of the common bile duct without evidence of choledocholithiasis.
[2017-08-20] MEDS ORDERED: Naproxen 275 mg Tab PO SCH (10:00)
--- NOTE | 2017-08-20 10:05 | CON ---
DATE: 08/20/2017 INDICATIONS: Chest pain. HISTORY OF PRESENT ILLNESS: This is a 57-year-old male, admitted with chest pain. He came to the emergency room with a 1- to 2-week history of varying left-sided, nonradiating discomfort, unassociated with shortness of breath or diaphoresis. This morning he states that the chest pain has improved, but he has head and neck ache. There is no orthopnea, PND, syncope, presyncope, lightheadedness, dizziness, vertigo, palpitation, edema, claudication, fever, chills, cough, sputum production, hemoptysis, abdominal pain, nausea, vomiting, diarrhea, constipation, melena. He has history of ethanolism. He has been admitted with alcohol withdrawal and alcohol-related hepatitis and pancreatitis. During a prior admission, he was transferred to [facility] for additional treatment. He continues to drink and smoke cigarettes. He states that he used a friend's Percocet to relieve pain. There is no history of rheumatic fever, myocardial infarction, congestive heart failure, arrhythmia, stroke, TIA, diabetes or gout. MEDICATIONS: At the time of admission included Naprosyn. He continues to smoke. He drinks daily. He uses illicit drugs. FAMILY HISTORY: Noncontributory. REVIEW OF SYSTEMS: Ten-point review of systems is otherwise unremarkable except as noted above. PHYSICAL EXAMINATION: GENERAL: He is a well-developed male, lying in bed on telemetry, in no acute distress. VITAL SIGNS: Unremarkable. He is in sinus rhythm at 63 to 80 beats per minute. He is afebrile. Blood pressure 133/68, respirations 20, O2 saturation 95% to 97% on room air and nasal cannula. HEENT: Exam reveals no neck vein distention, thyromegaly or carotid bruits. Mucous membranes are moist. Conjunctivae pink. NECK: Supple. CHEST: Lung hutchinson scattered rhonchi. CARDIOVASCULAR: Examination of the heart revealed normal first and second sounds. The PMI was not displaced. ABDOMEN: Soft with mild left upper quadrant tenderness, but no rebound or guarding. No CVA tenderness. No palpable abdominal aortic aneurysm. EXTREMITIES: Exam revealed no cyanosis, clubbing or edema. NEUROLOGICALLY: Awake, alert and oriented. PSYCHIATRIC: Normal as to mood and affect. SKIN: Warm and dry. No rash or cellulitis. LABORATORY AND IMAGING: EKG demonstrates regular sinus rhythm, voltage criteria for LVH, otherwise unremarkable. No change from a prior EKG except that repolarization has improved. The chest x-ray report reveals left lower lobe infiltrate, consistent with pneumonia. Followup chest x-rays are advised. White count is normal; hemoglobin 12.7; hematocrit 36.2; platelet count 178,000. PT/INR normal, PTT 32.2. Electrolytes are normal except for potassium which is 3.4. BUN and creatinine normal. Calcium, phosphorus and magnesium are low. LFTs are elevated. CK of 288. Two troponins are negative. LDL 44, total cholesterol 107, triglycerides 59. Amylase and lipase are normal. TSH is normal. Urinalysis is abnormal. Toxic screen is abnormal, positive for opioids and cannabinoids. IMPRESSION: The patient is a 57-year-old man complaining of chest pain. He may have left lower lobe pneumonia. There is no evidence of acute cardiac issues in that his EKG does not show acute ischemia and 2 troponins are negative. The chest pain is atypical, nonexertional and has been present on and off for about 2 weeks. He has a history of ethanolism, substance abuse, alcoholic hepatitis and pancreatitis and gallstones on his abdominal ultrasound. At this time, I agree with current plans. I will get an echocardiogram. Magnesium and potassium are being replaced. He should be observed for delirium tremens and give vitamin supplements. He should have GI evaluation. He should be considered for nuclear stress testing at an appropriate time in his workup, possibly as an outpatient. We should monitor Is and Os, stool for occult blood. He can be out of bed to chair. I will follow along with you. I will make additional recommendations based on his clinical course. Asaf Aparicio MD [facility]
[2017-08-20] MEDS: levoFLOXacin 500 mg in D5W 500 MG/100 ML BAG IVPB SCH (16:24)
--- NOTE | 2017-08-21 00:48 | CARD ---
APPROVED REPORT EKG Measurement Heart [id number] <Conclusion> Sinus bradycardia Otherwise normal ECG
--- NOTE | 2017-08-21 01:01 | CARD ---
APPROVED REPORT EKG Measurement Heart [id number] <Conclusion> Normal sinus rhythm Normal ECG
--- NOTE | 2017-08-21 01:14 | CARD ---
APPROVED REPORT EKG Measurement Heart [id number] <Conclusion> Normal sinus rhythm Normal ECG
[2017-08-21] MEDS: Pantoprazole 40 mg EC Tab PO SCH (05:38)
[2017-08-21 06:34] LABS: HEMATOCRIT 38.6 % (42.0-52.0); MEAN CELL VOLUME 99.2 fl (80.0-105.0); MEAN CORPUSCULAR HEMOGLOBIN 34.2 pg (25.0-35.0); MEAN CORPUSCULAR HGB CONC 34.5 g/dl (31.0-37.0); MEAN PLATELET VOLUME 9.8 fl (7.0-11.0); RED CELL DISTRIBUTION WIDTH 12.1 % (11.5-14.5); WHITE BLOOD COUNT 4.8 10^3/ul (4.5-11.0)
[2017-08-21 06:48] LABS: ALKALINE PHOSPHATASE 151 U/L (38-126); ALT/SGPT 125 U/L (7-56); AST/SGOT 138 U/L (17-59); BILIRUBIN,TOTAL 1.4 mg/dL (0.2-1.3); BLOOD UREA NITROGEN 11 mg/dL (7-21); CALCIUM 9.1 mg/dL (8.4-10.5); CARBON DIOXIDE 24 mmol/L (21-33); CHLORIDE 106 mmol/L (95-110); GFR AFRICAN-AMERICAN > 60; GLUCOSE,RANDOM 114 mg/dL (70-110); MAGNESIUM 1.8 mg/dL (1.7-2.2); PHOSPHOROUS 2.7 mg/dL (2.5-4.5); POTASSIUM 4.5 mmol/L (3.6-5.0); SODIUM 137 mmol/L (132-148); TOTAL PROTEIN 5.4 g/dL (5.8-8.3)
[2017-08-21 07:15] LABS: ALB/GLOB RATIO 1.2 (1.1-1.8)
[2017-08-21] MEDS: Multivitamin With Minerals Tab PO SCH (08:29)
--- NOTE | 2017-08-21 08:47 | CP.PCM.PN ---
<Ruth Saunders - Last Filed: 08/21/17 11:26> Subjective - Date & Time of Evaluation Date of Evaluation: 08/21/17 Time of Evaluation: 08:45 - Subjective Subjective: Hospitalist Service Progress Note: Patient seen and examined at bedside. Per nursing, no acute events overnight. Patient still having some chest pain but improved. Admits to having head pressure, a productive cough, and loose stools. Tolerating diet. Mild tremors noted. Denies fevers, chills, nausea, vomiting, dizziness, palpitations, abdominal pain, sob, urinary symptoms. Objective - Vital Signs/Intake and Output Vital Signs (last 24 hours): Temp Pulse Resp BP Pulse Ox 98.0 F 80 20 132/93 H 98 08/21/17 06:00 08/21/17 06:00 08/21/17 06:00 08/21/17 06:00 08/21/17 06:00 Intake and Output: 08/21/17 08/21/17 06:59 18:59 Intake Total 240 Output Total 200 Balance 40 - Medications Medications: Current Medications Aspirin (Aspirin Chewable) 324 mg PO DAILY [facility] Last Admin: 08/20/17 09:14 Dose: 324 mg Chlordiazepoxide (Librium) 10 mg PO BID [facility] PRN Reason: Protocol Folic Acid (Folic Acid) 1 mg PO DAILY [facility] Levofloxacin/Dextrose (Levaquin 500mg) 500 mg in 100 mls @ 100 mls/hr IVPB DAILY [facility] Last Admin: 08/20/17 16:24 Dose: 100 mls/hr Lorazepam (Ativan) 2 mg IVP Q2 PRN; Protocol PRN Reason: Agitation Lorazepam (Ativan) 2 mg IVP Q6H [facility] PRN Reason: Protocol Last Admin: 08/21/17 02:50 Dose: 2 mg Multivitamins/Minerals (Therapeutic-M Tab) 1 tab PO 0800 [facility] Last Admin: 08/21/17 08:29 Dose: 1 tab Pantoprazole Sodium (Protonix Ec Tab) 40 mg PO 0600 [facility] Last Admin: 08/21/17 05:38 Dose: 40 mg Thiamine HCl (Vitamin B1 Tab) 100 mg PO DAILY [facility] - Labs Labs: 08/21/17 06:15 08/21/17 06:15 PT 10.7 Seconds (9.9-11.8) 08/19/17 22:50 INR 0.99 (0.93-1.08) 08/19/17 22:50 APTT 32.2 Seconds (23.7-30.8) H 08/19/17 22:50 - Constitutional Appears: Non-toxic, No Acute Distress - Head Exam Head Exam: ATRAUMATIC, NORMAL INSPECTION - Eye Exam Eye Exam: EOMI, Normal appearance Pupil Exam: NORMAL ACCOMODATION - ENT Exam ENT Exam: Mucous Membranes Moist - Neck Exam Neck Exam: Full ROM - Respiratory Exam Respiratory Exam: Clear to Ausculation Bilateral, NORMAL BREATHING PATTERN. absent: Rales, Rhonchi, Wheezes - Cardiovascular Exam Cardiovascular Exam: REGULAR RHYTHM, +S1, +S2 - GI/Abdominal Exam GI & Abdominal Exam: Soft. absent: Guarding, Rigid, Tenderness - Rectal Exam Rectal Exam: Deferred - Extremities Exam Extremities Exam: Full ROM, Normal Inspection. absent: Calf Tenderness - Back Exam Back Exam: NORMAL INSPECTION - Neurological Exam Neurological Exam: Alert, Awake, Oriented x3 - Psychiatric Exam Psychiatric exam: Normal Affect, Normal Mood - Skin Skin Exam: Dry, Normal Color, Warm Assessment and Plan - Assessment and Plan (Free Text) Assessment: 57 year old male with past medical history of Hypertension and alcohol abuse presented for chest pain for two week duration. Plan: 1. Chest pain r/o ACS -Chest pain improving -Troponins negative x 4 -Continue ASA 325mg daily -Echo showed dilated LA, normal LV size/function -Will discontinue telemetry -Cardiology on consult, f/u recommendations 2. Community acquired pneumonia -Continue Levaquin 750mg daily (Day 2) -CXR on admission showing left lower lobe pneumonia -F/U sputum cultures -Will continue to monitor 3. Alcoholic Hepatitis -AST/ALT mildly elevated: 138/125 -T bili trending down -Hepatitis panel ordered -Abdominal US: mild hepatomegaly, diffuse increased echogenicity in the liver, cholelithiasis with mild diffuse dilation of CBD (see full report) -GI on consult, f/u recommendations 4. Alcohol Withdrawal/ Hx of alcohol abuse -Librium discontinued in the setting of worsening LFTs -Ativan 1mg PO Q6H [facility]; Ativan 1mg IVP Q6H PRN -Continue multivitamins, Folic acid, thiamine -Will continue to monitor for withdrawal symptoms -Patient requesting SW consult; SW aware -CIWA, seizure/aspiration precautions -PT evaluation ordered -Alcohol cessation strongly advised to patient 5. Hx of substance abuse -UTOX positive for opiates and cannibinoids -Substance abuse cessation strongly advised to patient GI/DVT ppx: -Protonix -SCDs <GonzaloHannah - Last Filed: 08/21/17 17:27> Objective - Vital Signs/Intake and Output Vital Signs (last 24 hours): Temp Pulse Resp BP Pulse Ox 98.2 F 101 H 20 142/80 98 08/21/17 16:58 08/21/17 16:58 08/21/17 16:58 08/21/17 16:58 08/21/17 06:00 Intake and Output: 08/21/17 08/21/17 06:59 18:59 Intake Total 240 540 Output Total 200 500 Balance 40 40 - Medications Medications: Current Medications Aspirin (Aspirin Chewable) 324 mg PO DAILY [facility] Last Admin: 08/21/17 09:07 Dose: 324 mg Chlordiazepoxide (Librium) 10 mg PO BID [facility] PRN Reason: Protocol Last Admin: 08/21/17 09:06 Dose: 10 mg Folic Acid (Folic Acid) 1 mg PO DAILY [facility] Last Admin: 08/21/17 09:07 Dose: 1 mg Levofloxacin/Dextrose (Levaquin 500mg) 500 mg in 100 mls @ 100 mls/hr IVPB DAILY [facility] Last Admin: 08/21/17 09:12 Dose: 100 mls/hr Lorazepam (Ativan) 1 mg IVP Q6H PRN; Protocol PRN Reason: Agitation Lorazepam (Ativan) 2 mg PO Q6H [facility] PRN Reason: Protocol Last Admin: 08/21/17 15:47 Dose: 2 mg Multivitamins/Minerals (Therapeutic-M Tab) 1 tab PO 0800 [facility] Last Admin: 08/21/17 08:29 Dose: 1 tab Pantoprazole Sodium (Protonix Ec Tab) 40 mg PO 0600 [facility] Last Admin: 08/21/17 05:38 Dose: 40 mg Thiamine HCl (Vitamin B1 Tab) 100 mg PO DAILY [facility] Last Admin: 08/21/17 09:06 Dose: 100 mg - Labs Labs: 08/21/17 06:15 08/21/17 06:15 PT 10.7 Seconds (9.9-11.8) 08/19/17 22:50 INR 0.99 (0.93-1.08) 08/19/17 22:50 APTT 32.2 Seconds (23.7-30.8) H 08/19/17 22:50 Attending/Attestation - Attestation I have personally seen and examined this patient.: Yes I have fully participated in the care of the patient.: Yes I have reviewed all pertinent clinical information, including history, physical exam and plan: Yes Notes (Text): 08/21/17 17:24 attending note; Patient seen and examined with resident. Patient is a 57-year-old with a history of alcohol abuse was admitted with chest discomfort/on alcohol withdrawal. Symptoms are improving. LFTs improving. Tolerating diet well. Chest pain; resolved. Cardiac enzymes negative. Echocardiogram showed normal EF. Cardiology evaluation appreciated. outpatient stress test recommended. complete alcohol cessation is strongly advised. PT evaluation/social work program coordinator evaluation requested. Possible discharge home tomorrow. Patient will follow with PMD . Case discussed with PMD in detail.
--- NOTE | 2017-08-21 08:49 | CARD ---
APPROVED REPORT EXAM: Two-dimensional and M-mode echocardiogram with Doppler and color Doppler. INDICATION Chest Pain 2D DIMENSIONS Left Atrium (2D)4.6 (1.6-4.0cm)IVSd1.1 (0.7-1.1cm) LVDd4.2 (3.9-5.9cm)PWd1.2 (0.7-1.1cm) LVDs3.0 (2.5-4.0cm)FS (%) 28.3 % LVEF (%)55.1 (>50%) M-Mode DIMENSIONS Aortic Root3.00 (2.2-3.7cm)Aortic Cusp Exc.2.20 (1.5-2.0cm) Aortic Valve AoV Peak [id number]/Chan Peak GR.9mmHg Mitral Valve E/A ratio0.0 TDI E/Lateral E'0.0E/Medial E'0.0 Tricuspid Valve TR Peak [id number] [id number] Peak Gr.17mmHg [id number] LEFT VENTRICLE The left ventricle is normal size. There is normal left ventricular wall thickness. The left ventricular function is normal. The left ventricular ejection fraction is within the normal range. There is normal LV segmental wall motion. RIGHT VENTRICLE The right ventricle is normal size. The right ventricular systolic function is normal. ATRIA The left atrium is mildly dilated. The right atrium size is normal. The interatrial septum is intact with no evidence for an atrial septal defect. AORTIC VALVE The aortic valve is normal in structure. There is mild aortic regurgitation. There is no aortic valvular stenosis. MITRAL VALVE The mitral valve is normal in structure. Mitral regurgitation is mild. TRICUSPID VALVE The tricuspid valve is normal in structure. There is mild tricuspid regurgitation. PULMONIC VALVE The pulmonary valve is normal in structure. GREAT VESSELS The aortic root is normal in size. The IVC is normal in size and collapses >50% with inspiration. PERICARDIAL EFFUSION There is no pleural effusion. There is no pericardial effusion. <Conclusion> Dilated LA. Normal LV size and systolic function. Mild AI. Mild MR and TR.
[2017-08-21] MEDS: levoFLOXacin 500 mg in D5W 500 MG/100 ML BAG IVPB SCH (09:12)
--- NOTE | 2017-08-21 13:04 | PN ---
SUBJECTIVE: The patient is seen sitting in bed on telemetry. He feels somewhat tremulous. He denies any chest pain. CURRENT MEDICATIONS: Include aspirin, Ativan, folic acid, Levaquin, Librium, Protonix and vitamin supplements. OBJECTIVE: GENERAL: He is a middle aged man, appears somewhat anxious and tremulous. VITAL SIGNS: His blood pressure is 150/98 with a pulse of 96, in sinus, respirations are 16. He is afebrile. HEENT: No JVD. CHEST: Diffuse scattered rhonchi. HEART: PMI in normal position. No pathological gallops noted. ABDOMEN: Soft and nontender with bowel sounds. EXTREMITIES: No edema. DIAGNOSTIC DATA: Potassium 4.5, BUN and creatinine are 11 and 0.7. White count is 4.8, hemoglobin and hematocrit 13.3 and 38.6 with platelet count of 202,000. AST and ALT are 138 and 125 respectively. Bilirubin is 1.4. His echocardiogram was reviewed showing evidence of dilated left atrium with normal LV size and systolic function, mild aortic insufficiency as well as mild mitral and tricuspid regurgitation. IMPRESSION: 1. Chest pain, no clear evidence of cardiac cause. 2. History of polysubstance abuse. 3. Probable alcoholic liver disease. 4. Mild valvular heart disease. RECOMMENDATIONS: From the cardiac standpoint, no further workup appears necessary at the present time. An outpatient stress test can be considered and treatment for avoidance of alcohol withdrawal would be advisable. The need for smoking and alcohol abstinence were reviewed with him. We will be happy to follow him as needed. Raul Meza MD
[2017-08-21 16:59] VITALS: RESP 20
[2017-08-22] MEDS: Pantoprazole 40 mg EC Tab PO SCH (06:27)
[2017-08-22 07:08] LABS: HEMATOCRIT 38.7 % (42.0-52.0); MEAN CELL VOLUME 97.7 fl (80.0-105.0); MEAN CORPUSCULAR HEMOGLOBIN 34.6 pg (25.0-35.0); MEAN CORPUSCULAR HGB CONC 35.4 g/dl (31.0-37.0); MEAN PLATELET VOLUME 9.5 fl (7.0-11.0); RED CELL DISTRIBUTION WIDTH 11.8 % (11.5-14.5); WHITE BLOOD COUNT 4.3 10^3/ul (4.5-11.0)
[2017-08-22 07:25] LABS: ALB/GLOB RATIO 1.2 (1.1-1.8); ALKALINE PHOSPHATASE 143 U/L (38-126); ALT/SGPT 117 U/L (7-56); AST/SGOT 136 U/L (17-59); BILIRUBIN,TOTAL 0.9 mg/dL (0.2-1.3); BLOOD UREA NITROGEN 13 mg/dL (7-21); CALCIUM 8.9 mg/dL (8.4-10.5); CARBON DIOXIDE 28 mmol/L (21-33); CHLORIDE 105 mmol/L (98-107); GFR AFRICAN-AMERICAN > 60; GLUCOSE,RANDOM 121 mg/dL (70-110); MAGNESIUM 1.7 mg/dL (1.7-2.2); PHOSPHOROUS 3.5 mg/dL (2.5-4.5); POTASSIUM 4.3 mmol/L (3.6-5.0); SODIUM 138 mmol/L (132-148); TOTAL PROTEIN 6.1 g/dL (5.8-8.3)
[2017-08-22] MEDS: Multivitamin With Minerals Tab PO SCH (08:12)
[2017-08-22 08:49] VITALS: BP 130/88; PULSE 80; TEMP 98.3; O2SAT 97
[2017-08-22] MEDS ORDERED: Albuterol-Ipratrop 3 mg / 0.5 (3 ml) UD IH PRN (09:42)
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
[2017-08-22] MEDS: levoFLOXacin 500 mg in D5W 500 MG/100 ML BAG IVPB SCH (10:43)
[2017-08-22] MEDS ORDERED: Albuterol-Ipratrop 3 mg / 0.5 (3 ml) UD IH SCH (14:00)
== END 2017-08-22 13:34 | disposition home or self-care (01) | DRG 744 ==
LOC: ED 22:35 → ERH 08-20 00:26 → 2RSO 08-20 01:55 → 5RSO 08-21 17:08
PROVIDERS: ADMIT Internal Medicine; ATTEND Internal Medicine
PROC: HZ2ZZZZ Detoxification Services for Substance Abuse Treatment (ICD-10-PCS; principal; 2017-08-19)
DX: F10.239 Alcohol dependence with withdrawal, unspecified (principal); J18.9 Pneumonia, unspecified organism; F11.10 Opioid abuse, uncomplicated; K76.0 Fatty (change of) liver, not elsewhere classified; E87.6 Hypokalemia; K70.10 Alcoholic hepatitis without ascites; R07.89 Other chest pain; I10 Essential (primary) hypertension; F12.10 Cannabis abuse, uncomplicated; K21.9 Gastro-esophageal reflux disease without esophagitis; F17.210 Nicotine dependence, cigarettes, uncomplicated; K80.20 Calculus of gallbladder without cholecystitis without obstruction

== ENCOUNTER 2018-11-08 16:28 | Emergency (ER) | payer MEDICAID ==
[2018-11-08 16:28] VITALS: BMI 25.1
[2018-11-08 16:48] VITALS: O2SAT 99
--- NOTE | 2018-11-08 17:20 | RAD ---
Date of service: 11/08/2018 HISTORY: Chest pain. COMPARISON: 08/20/2017 FINDINGS: LUNGS: No active pulmonary disease. Resolution left lower lobe infiltrate PLEURA: No significant pleural effusion identified, no pneumothorax apparent. CARDIOVASCULAR: No atherosclerotic calcification present Normal. OSSEOUS STRUCTURES: No significant abnormalities. VISUALIZED UPPER ABDOMEN: Normal. OTHER FINDINGS: None. IMPRESSION: No active disease.
[2018-11-08 17:48] LABS: BASO # 0.02 K/mm3 (0.0-2.0); BASO % 0.3 % (0.0-3.0); EOS % 0.3 % (1.5-5.0); GRAN # 3.68 (1.4-6.5); HEMOGLOBIN 14.8 g/dL (14.0-18.0); LYMPH # 1.7 (1.2-3.4); LYMPH % 28.5 % (22.0-35.0); MEAN CELL VOLUME 98.6 fl (80.0-105.0); MEAN CORPUSCULAR HEMOGLOBIN 35.4 pg (25.0-35.0); MEAN CORPUSCULAR HGB CONC 35.9 g/dl (31.0-37.0); MEAN PLATELET VOLUME 9.1 fl (7.0-11.0); MONO # 0.5 (0.1-0.6); MONO % 7.9 % (1.0-6.0); RBC 4.18 10^6/uL (3.5-6.1); RED CELL DISTRIBUTION WIDTH 12.7 % (11.5-14.5); WHITE BLOOD COUNT 5.9 10^3/uL (4.5-11.0)
[2018-11-08 17:57] LABS: INR 0.91; PARTIAL THROMBOPLASTIN TIME 29.6 Seconds (25.1-36.5); PROTHROMBIN TIME 10.3 SECONDS (9.4-12.5)
[2018-11-08 17:58] LABS: ALB/GLOB RATIO 1.5 (1.1-1.8); ALBUMIN 4.8 g/dL (3.0-4.8); ALT/SGPT 97 U/L (7-56); AST/SGOT 110 U/L (17-59); BLOOD UREA NITROGEN 17 mg/dL (7-21); CALCIUM 9.5 mg/dL (8.4-10.5); GFR NON-AFRICAN AMERICAN > 60
[2018-11-08 18:09] LABS: TROPONIN I < 0.01 ng/mL
[2018-11-08 18:19] LABS: CK-MB 3.4 ng/mL (0.0-3.6)
--- NOTE | 2018-11-08 18:31 | ED PDOC ---
Arrival/HPI - General Chief Complaint: Chest Pain Time Seen by Provider: 11/08/18 16:40 Historian: Patient - History of Present Illness Narrative History of Present Illness (Text): 11/08/18 18:27 58yo male with pmhx of PTSD and chronic leg pain present with complaint of constant chest pain x one month now. States he have not seen a doctor for the chest pain. States he decided to come to ED today for evaluation. Notes that his Doctor in [facility]. denies SOB, diaphoresis, fever, chills, abdominal pain, LE edema, calf pain, dizziness, vomiting, orthopnea, RAMIREZ, any other complaint. Past Medical History - Provider Review Nursing Documentation Reviewed: Yes - Infectious Disease Hx of Infectious Diseases: None - Tetanus Immunization Tetanus Immunization: Unknown - Cardiac Hx Hypertension: Yes - Pulmonary Hx Respiratory Disorders: No - Neurological Hx Paralysis: No - HEENT Hx HEENT Disorder: No - Renal Hx Renal Disorder: No - Endocrine/Metabolic Hx Endocrine Disorders: No - Hematological/Oncological Hx Blood Transfusions: No - Integumentary Hx Dermatological Disorder: No Other/Comment: history of lipoma right forehead - Musculoskeletal/Rheumatological Hx Musculoskeletal Disorders: Yes Hx Herniated Disk: Yes - Gastrointestinal Hx Gastrointestinal Disorders: Yes Hx Fatty Liver Disease: Yes Hx Gastroesophageal Reflux: Yes - Genitourinary/Gynecological Hx Genitourinary Disorders: No - Psychiatric Hx Emotional Abuse: No Hx Physical Abuse: No Hx Substance Use: No - Surgical History Other/Comment: tumor right forehead - Anesthesia Hx Anesthesia Reactions: No Hx Malignant Hyperthermia: No - Suicidal Assessment Feels Threatened In Home Enviroment: No Family/Social History - Physician Review Nursing Documentation Reviewed: Yes Family/Social History: Unknown Family HX Smoking Status: Heavy Smoker > 10 Cigarettes Daily Hx Alcohol Use: Yes Hx Substance Use: No Hx Substance Use Treatment: No Allergies/Home Meds Allergies/Adverse Reactions: Allergies No Known Allergies Allergy (Verified 06/20/16 17:24) Review of Systems - Physician Review All systems were reviewed & negative as marked: Yes - Review of Systems Constitutional: Normal Eyes: Normal ENT: Normal Respiratory: Normal Cardiovascular: Chest Pain Gastrointestinal: Normal Genitourinary Male: Normal Musculoskeletal: Normal Skin: Normal Neurological: Normal Endocrine: Normal Hemo/Lymphatic: Normal Psychiatric: Normal Physical Exam Vital Signs Reviewed: Yes Vital Signs Temp Pulse Resp BP Pulse Ox 11/08/18 16:45 98.7 F 98 H 20 151/98 H 99 Temperature: Afebrile Blood Pressure: Normal Pulse: Regular Respiratory Rate: Normal Appearance: Positive for: Well-Appearing, Non-Toxic, Comfortable Pain Distress: None Mental Status: Positive for: Alert and Oriented X 3 - Systems Exam Head: Present: Atraumatic, Normocephalic Pupils: Present: PERRL Extroacular Muscles: Present: EOMI Conjunctiva: Present: Normal Mouth: Present: Moist Mucous Membranes Neck: Present: Normal Range of Motion Respiratory/Chest: Present: Clear to Auscultation, Good Air Exchange. No: Respi ratory Distress, Accessory Muscle Use, Wheezes, Decreased Breath Sounds, Rales, Retracting, Rhonchi Cardiovascular: Present: Regular Rate and Rhythm, Normal S1, S2. No: Murmurs Abdomen: No: Tenderness, Distention, Peritoneal Signs Back: Present: Normal Inspection Upper Extremity: Present: Normal Inspection. No: Cyanosis, Edema Lower Extremity: Present: Normal Inspection. No: Edema Neurological: Present: GCS=15, CN II-XII Intact, Speech Normal Skin: Present: Warm, Dry, Normal Color. No: Rashes Psychiatric: Present: Alert, Oriented x 3, Normal Insight, Normal Concentration Medical Decision Making ED Course and Treatment: 11/08/18 19:17 58yo male present with complaint of chest pain x one month. Labs EKG chest xray EKG NSR @ 100bpm chest xray IMPRESSION: No active disease. First CE was negative. Plan was to observe pt in ED for serial CE lab Pt however declined to be observe or further lab test. The risk of him leaving without further evaluation was DW the patient, which includes [place], permanent disability, . He verbalizes understanding of these risks and still requested to sign out AMA. He was AAO x3 and capable of making this decision. - Lab Interpretations Lab Results: 11/08/18 17:40 11/08/18 17:40 Lab Results 11/08/18 17:40: Sodium 142, Potassium 3.7, Chloride 105, Carbon Dioxide 22, An ion Gap 19, BUN 17, Creatinine 0.9, Est GFR ( Amer) > 60, Est GFR (Non-Af Amer) > 60, Random Glucose 162 H, Calcium 9.5, Magnesium 2.1, Total Bilirubin 0.9, AST 110 H, ALT 97 H, Alkaline Phosphatase 62, Lactate Dehydrogenase 511, Total Creatine Kinase 236 H, CK-MB (CK-2) 3.4, CK-MB (CK-2) % Cancelled, Troponin I < 0.01, Total Protein 8.1, Albumin 4.8, Globulin 3.3, Albumin/Globulin Ratio 1.5 11/08/18 17:40: PT 10.3, INR 0.91, APTT 29.6 11/08/18 17:40: WBC 5.9, RBC 4.18, Hgb 14.8, Hct 41.2 L, MCV 98.6, MCH 35.4 H, MCHC 35.9, RDW 12.7, Plt Count 193, MPV 9.1, Gran % 63.0, Lymph % (Auto) 28.5, [place] % (Auto) 7.9 H, Eos % (Auto) 0.3 L, Baso % (Auto) 0.3, Gran # 3.68, Lymph # (Auto) 1.7, [place] # (Auto) 0.5, Eos # (Auto) 0.0, Baso # (Auto) 0.02 - RAD Interpretation Radiology Orders: 11/08/18 16:59 CHEST PORTABLE [RAD] Stat Disposition/Present on Arrival - Present on Arrival Any Indicators Present on Arrival: No History of DVT/PE: No History of Uncontrolled Diabetes: No Urinary Catheter: No History of Decub. Ulcer: No History Surgical Site Infection Following: None - Disposition Have Diagnosis and Disposition been Completed?: Yes Diagnosis: Chest pain Disposition: AGAINST MEDICAL ADVICE Disposition Time: 18:05 Condition: GUARDED Discharge Instructions (ExitCare): Chest Pain (ED) Forms: peerTransfer (Chinese)
[2018-11-08 18:42] LABS: URINE APPEARANCE CLEAR (CLEAR); URINE BILIRUBIN NEGATIVE (NEGATIVE); URINE BLOOD NEGATIVE (NEGATIVE); URINE COLOR YELLOW (YELLOW); URINE GLUCOSE (UA) NEGATIVE (NEGATIVE); URINE LEUKOCYTE ESTERASE NEGATIVE Leu/uL (NEGATIVE); URINE PROTEIN NEGATIVE mg/dL (<30 mg/dL); URINE UROBILINOGEN 0.2 E.U./dL (<1 E.U./dL)
[2018-11-08 18:51] VITALS: BP 129/59; PULSE 75; RESP 19; TEMP 98
[2018-11-08 18:57] LABS: BARBITURATES, UR NEGATIVE (NEGATIVE); BENZODIAZEPINES, UR NEGATIVE (NEGATIVE); OPIATES, UR NEGATIVE (NEGATIVE); PHENCYCLIDINE, UR NEGATIVE (NEGATIVE)
--- NOTE | 2018-11-09 09:23 | CARD ---
APPROVED REPORT Date of service: 11/08/2018 EKG Measurement Heart [id number] MI [id number] <Conclusion> Normal sinus rhythm Normal ECG No change except the rate is faster
== END 2018-11-08 18:51 | disposition left against medical advice (07) ==
LOC: ED 16:28
DX: R07.9 Chest pain, unspecified (principal); I10 Essential (primary) hypertension; K21.9 Gastro-esophageal reflux disease without esophagitis; F17.210 Nicotine dependence, cigarettes, uncomplicated